=== PATIENT | male | born 1990 | race Caucasian/White ===

== ENCOUNTER 2017-01-05 12:56 | Emergency (ER) | payer MEDICAID ==
[~2017-01-05] VITALS: Ht 195.6 cm; Wt 68.0 kg
[~2017-01-05 12:56] MED LIST: CITA-77 PO; FURO40TA4; GABA-339 PO; HYDR-2652 PO; INSLISPI SC; INSUINJ37 SUBCUT; ISOS10TA2 PO; LEVO250T45 PO; MET25T PO; MIRT15TA63 PO; NIFEDICAL PO; NOR5T PO
[2017-01-05] MEDS ORDERED: SODIUM CHLORIDE 0.9% 1,000 ML IV ONE (15:21)
[2017-01-05] MEDS ORDERED: MORPHINE SULFATE 4 MG/ML SYRG IV ONE (15:30)
[2017-01-05] MEDS ORDERED: ONDANSETRON HCL 4 MG/2 ML VIAL IV ONE (15:30)
[2017-01-05 15:38] LABS: Basophils # (auto) 0 uL; Basophils % (auto) 0.5 % (0.0-2.0); DEFINITIVE VIEW TRANSMISSION; Eosinophils # (auto) 0.2 uL; Hematocrit 26.3 % (41.0-53.0); Hemoglobin 8.5 g/dL (13.5-17.5); Lymphocytes # (auto) 1.4 uL; Lymphocytes % (auto) 21.1 % (10.0-50.0); Mean Corpuscular Hemoglobin 28.1 pg (28.0-32.0); Mean Corpuscular Hgb Conc. 32.3 g/dL (32.0-36.0); Mean Corpuscular Volume 87.1 fL (80.0-100.0); Mean Platelet Volume 7.6 fL (7.4-10.4); Monocytes # (auto) 0.4 uL; Monocytes % (auto) 5.8 % (0.0-12.0); Neutrophils # (auto) 4.6 uL; Neutrophils % (auto) 69.6 % (37.0-80.0); Platelet Count (auto) 276 10^3/uL (140-450); Red Cell Distribution Width 14.4 % (11.6-16.0); White Blood Cell 6.7 10^3/uL (4.4-10.8)
[2017-01-05] MEDS ORDERED: InsuLIN REG 1unit/0.01ml Soln (100units/ml) IV ONE (15:45)
[2017-01-05 15:50] LABS: Albumin 2.6 g/dL (3.4-5.0); BUN/Creatinine Ratio 13.4; Calcium 8.3 mg/dL (8.5-10.1); Potassium 4.5 mmol/L (3.5-5.1)
[2017-01-05 15:53] LABS: Bilirubin, Total 0.9 mg/dL (0.2-1.0); Total Protein 6.4 g/dL (6.4-8.2)
[2017-01-05 16:40] VITALS: BP 146/101
== END 2017-01-05 19:07 | disposition home or self-care (01) ==
LOC: ER 12:56 → EDBD 12:56 → ER 19:07
DX: G89.29 Other chronic pain (principal); M54.5 Low back pain; E44.0 Moderate protein-calorie malnutrition; Z68.1 Body mass index [BMI] 19.9 or less, adult; M25.552 Pain in left hip; M25.551 Pain in right hip; E11.22 Type 2 diabetes mellitus with diabetic chronic kidney disease; I13.0 Hypertensive heart and chronic kidney disease with heart failure and stage 1 through stage 4 chronic kidney disease, or unspecified chronic kidney disease; N18.9 Chronic kidney disease, unspecified; I50.9 Heart failure, unspecified; F17.210 Nicotine dependence, cigarettes, uncomplicated; F12.10 Cannabis abuse, uncomplicated; E11.65 Type 2 diabetes mellitus with hyperglycemia; Z88.8 Allergy status to other drugs, medicaments and biological substances; Z79.4 Long term (current) use of insulin; Z79.899 Other long term (current) drug therapy; W18.39XA Other fall on same level, initial encounter; Y93.89 Activity, other specified; Y99.8 Other external cause status; Y92.89 Other specified places as the place of occurrence of the external cause
CPT/HCPCS: 36415; 73502; 80053; 82962; 85025; 96361; 96374; 96375; 99285; J1815; J2270; J2405; J7030

== ENCOUNTER 2017-08-15 03:22 | Inpatient (IN) | payer MEDICAID ==
[~2017-08-15] VITALS: Ht 193 cm; Wt 80.7 kg
[~2017-08-15 03:22] MED LIST changes: +HYDR-4663 PO; -NOR5T PO
[2017-08-15] MEDS ORDERED: cloNIDine HCL 0.1 MG TAB PO ONE (03:45)
[2017-08-15] MEDS ORDERED: PANTOPRAZOLE 40 MG/10 ML VIAL IV ONE ×2 (03:45→09:00)
[2017-08-15 04:10] LABS: Basophils # (auto) 0.1 uL; Eosinophils # (auto) 0.1 uL; Eosinophils % (auto) 1.7 % (0.0-7.0); Hematocrit 24.5 % (41.0-53.0); Lymphocytes # (auto) 0.9 uL; Lymphocytes % (auto) 9.9 % (10.0-50.0); Mean Corpuscular Hgb Conc. 32.7 g/dL (32.0-36.0); Mean Corpuscular Volume 94.8 fL (80.0-100.0); Mean Platelet Volume 7.6 fL (6.9-10.8); Monocytes # (auto) 0.4 uL; Neutrophils # (auto) 7.2 uL; Neutrophils % (auto) 82.4 % (37.0-80.0); Platelet Count (auto) 251 10^3/uL (140-450); White Blood Cell 8.8 10^3/uL (4.4-10.8)
[2017-08-15 04:26] LABS: INR 0.95 (0.9-1.15); Partial Thromboplastin Time 26.6 sec (22.64-33.71); Prothrombin Time 10.4 sec (9.37-12.3)
[2017-08-15] MEDS ORDERED: PROMETHAZINE HCL 25 MG/ML 1ML IV ONE (04:30)
[2017-08-15] MEDS ORDERED: MORPHINE SULF INJ 2 MG/ML SYRINGE 1ML IV ONE (04:30)
[2017-08-15 04:31] LABS: Albumin 3.2 g/dL (3.4-5.0); Amylase 75 U/L (25-115); Anion Gap 13 (5-15); Aspartate Aminotransferase 13 U/L (15-37); BUN/Creatinine Ratio 8.3; Blood Urea Nitrogen 58 mg/dL (7-18); Calcium 8.4 mg/dL (8.5-10.1); Carbon Dioxide 21 mmol/L (21-32); Chloride 107 mmol/L (98-107); GFR African American 12 mL/min; GFR Non-African American 10 mL/min; Glucose 167 mg/dL (74-106); Magnesium 3.3 mg/dL (1.6-2.6); Potassium 5.5 mmol/L (3.5-5.1); Sodium 141 mmol/L (136-145)
[2017-08-15 04:36] LABS: Alkaline Phosphatase 76 U/L (45-117); Bilirubin, Total 0.5 mg/dL (0.2-1.0); Total Protein 6.9 g/dL (6.4-8.2)
[2017-08-15 04:38] LABS: B-Type Natriuretic Peptide 1293.48 pg/mL (0-100)
[2017-08-15 04:39] LABS: Temperature: 22.2 C (20.0-25.0)
[2017-08-15] MEDS ORDERED: SODIUM CHLORIDE 0.9% 1,000 ML IV ONE (07:34)
[2017-08-15] MEDS ORDERED: FUROSEMIDE 40 MG/4 ML VIAL IV ONE ×2 (07:45→10:30)
[2017-08-15] MEDS ORDERED: NITROGLYCERIN 0.4 MG SL TAB SL PRN (09:00)
[2017-08-15] MEDS ORDERED: HYDROcodone-ACET 5/325MG TAB PO PRN (09:00)
[2017-08-15] MEDS ORDERED: SODIUM POLYSTYRENE SULF 15GM/60ML SUSP PO ONE (09:00)
[2017-08-15] MEDS ORDERED: LACTULOSE 20Gm/30ML SOLN PO PRN (09:00)
[2017-08-15] MEDS ORDERED: ACETAMINOPHEN 500 MG TAB PO PRN (09:00)
[2017-08-15] MEDS ORDERED: LORazepam 0.5 MG TAB PO PRN (09:00)
[2017-08-15] MEDS ORDERED: MORPHINE SULF INJ 2 MG/ML SYRINGE 1ML IV PRN (09:00)
[2017-08-15] MEDS ORDERED: TEMAZEPAM 15 MG CAP PO PRN (09:00)
[2017-08-15] MEDS: MORPHINE SULF INJ 2 MG/ML SYRINGE 1ML IV PRN ×2 (09:28→14:38)
[2017-08-15] MEDS: PROMETHAZINE HCL 25 MG/ML 1ML IV PRN ×2 (09:28→14:39)
[2017-08-15] MEDS ORDERED: PATIENTS OWN MEDICATION (Gabapentin 600 MG) PO SCH ×2 (10:00)
[2017-08-15] MEDS ORDERED: FUROSEMIDE 40 MG/4 ML VIAL IV SCH (10:00)
[2017-08-15] MEDS ORDERED: NIFEDICAL PO SCH (10:00)
[2017-08-15] MEDS ORDERED: METOPROLOL TARTRATE 25 MG TAB PO SCH (10:00)
[2017-08-15] MEDS ORDERED: LEVOFLOXACIN 250MG 50 ML IV SCH (10:00)
[2017-08-15] MEDS ORDERED: PANTOPRAZOLE 40 MG/10 ML VIAL IV SCH ×2 (10:00→22:00)
[2017-08-15] MEDS ORDERED: NIFEdipine ER 30 MG TAB PO SCH (10:00)
[2017-08-15] MEDS ORDERED: GABAPENTIN 300 MG CAP PO SCH (10:00)
[2017-08-15] MEDS ORDERED: CITALOPRAM HYDROBR 20 MG TAB PO SCH (10:00)
[2017-08-15 10:21] LABS: Urine Bilirubin Negative (Negative); Urine Blood 3+ /uL (Negative); Urine Color Red (Yellow); Urine Glucose 2+ mg/dL (Normal); Urine Ketone Negative (Negative); Urine Nitrite Negative (Negative); Urine RBC 1974 /hpf (0 - 3); Urine Urobilinogen Normal (Negative)
[2017-08-15 12:01] LABS: Hematocrit 22.2 % (41.0-53.0)
[2017-08-15] MEDS ORDERED: hydrALAZINE HCL 25 MG TAB PO SCH (14:00)
[2017-08-15] MEDS ORDERED: ISOSORBIDE DINITRATE 10 MG TAB PO SCH (14:00)
[2017-08-15] MEDS ORDERED: PATIENTS OWN MEDICATION (Hydralazine Hcl 50 MG) PO SCH ×2 (14:00)
[2017-08-15] MEDS ORDERED: metroNIDAZOLE 500MG/100ML 100 ML IV SCH (14:00)
[2017-08-15] MEDS ORDERED: NIF10C PO (14:10)
[2017-08-15] MEDS ORDERED: ONDA8TAB6 PO (14:10)
[2017-08-15] MEDS ORDERED: GABA-339 PO (14:10)
[2017-08-15] MEDS ORDERED: FER325T PO (14:10)
[2017-08-15 17:17] VITALS: BP 144/72
[2017-08-15] MEDS ORDERED: INSULIN GLARGINE 10 UNIT SUBCUT SCH ×2 (18:00)
[2017-08-15 18:19] VITALS: BP 143/91
[2017-08-15] MEDS ORDERED: MIRTAZAPINE 15 MG PO SCH (22:00)
[2017-08-15] MEDS ORDERED: ATORVASTATIN 20 MG TAB PO SCH (22:00)
[2017-08-15] MEDS ORDERED: MIRTAZAPINE 30 MG TAB PO SCH (22:00)
== END 2017-08-15 19:38 | disposition left against medical advice (07) | DRG 253 ==
LOC: EDBD 03:22 → ER 03:24 → TELE 03:25
PROVIDERS: ADMIT Internal Medicine; ATTEND Internal Medicine
DX: K92.2 Gastrointestinal hemorrhage, unspecified (principal); N17.9 Acute kidney failure, unspecified; I31.3 Pericardial effusion (noninflammatory); I13.0 Hypertensive heart and chronic kidney disease with heart failure and stage 1 through stage 4 chronic kidney disease, or unspecified chronic kidney disease; I50.9 Heart failure, unspecified; E44.1 Mild protein-calorie malnutrition; E11.21 Type 2 diabetes mellitus with diabetic nephropathy; E83.41 Hypermagnesemia; Z53.21 Procedure and treatment not carried out due to patient leaving prior to being seen by health care provider; E11.65 Type 2 diabetes mellitus with hyperglycemia; N18.9 Chronic kidney disease, unspecified; K92.0 Hematemesis; E11.621 Type 2 diabetes mellitus with foot ulcer; K59.00 Constipation, unspecified; E11.319 Type 2 diabetes mellitus with unspecified diabetic retinopathy without macular edema; D63.8 Anemia in other chronic diseases classified elsewhere; E11.40 Type 2 diabetes mellitus with diabetic neuropathy, unspecified; E11.22 Type 2 diabetes mellitus with diabetic chronic kidney disease; E87.5 Hyperkalemia; H54.0 Blindness, both eyes; F17.210 Nicotine dependence, cigarettes, uncomplicated; G89.29 Other chronic pain; E87.6 Hypokalemia; I16.0 Hypertensive urgency; L97.509 Non-pressure chronic ulcer of other part of unspecified foot with unspecified severity; M54.9 Dorsalgia, unspecified; Z83.3 Family history of diabetes mellitus; Z82.49 Family history of ischemic heart disease and other diseases of the circulatory system
CPT/HCPCS: 36415; 71010; 74176; 76775; 80053; 80307; 81001; 82150; 82378; 82550; 83690; 83735; 83880; 84443; 84484; 85014; 85018; 85025; 85045; 85610; 85652; 85730; 86141; 86850; 86900; 86901; 86920; 93005; 93306; 94761; 96361; 96365; 96375; C9113

== ENCOUNTER 2017-11-22 02:06 | Emergency (ER) | payer MEDICAID ==
[~2017-11-22] VITALS: Ht 195.6 cm; Wt 80.7 kg
[~2017-11-22 02:06] MED LIST changes: +FER325T PO; -HYDR-2652 PO; -HYDR-4663 PO; +HYDR-4683 PO; +HYDR50TA15 PO; -ISOS10TA2 PO; -LEVO250T45 PO; -MIRT15TA63 PO; +NIF10C PO; -NIFEDICAL PO; +ONDA8TAB6 PO
[2017-11-22 02:25] VITALS: BP 121/71
== END 2017-11-22 08:06 | disposition left against medical advice (07) ==
LOC: ER 02:08
DX: M54.5 Low back pain (principal); M79.1 Myalgia; I13.0 Hypertensive heart and chronic kidney disease with heart failure and stage 1 through stage 4 chronic kidney disease, or unspecified chronic kidney disease; E11.22 Type 2 diabetes mellitus with diabetic chronic kidney disease; E11.40 Type 2 diabetes mellitus with diabetic neuropathy, unspecified; N18.9 Chronic kidney disease, unspecified; I50.9 Heart failure, unspecified; E11.9 Type 2 diabetes mellitus without complications; Z79.4 Long term (current) use of insulin
CPT/HCPCS: 72100

== ENCOUNTER 2018-01-05 00:22 | Emergency (ER) | payer MEDICAID ==
[~2018-01-05] VITALS: Ht 190.5 cm; Wt 81.6 kg
[2018-01-05] MEDS ORDERED: HYDROcodone-ACET 10/325MG TAB PO ONE ×2 (02:45→06:30)
[2018-01-05] MEDS ORDERED: ONDANSETRON HCL 4 MG/2 ML VIAL ONE (02:52)
[2018-01-05] MEDS ORDERED: cloNIDine HCL 0.1 MG TAB ONE (02:59)
[2018-01-05] MEDS ORDERED: cloNIDine HCL 0.1 MG TAB PO ONE (03:45)
[2018-01-05] MEDS ORDERED: ONDANSETRON HCL 4 MG/2 ML VIAL IM ONE (03:45)
[2018-01-05 06:30] VITALS: BP 160/97
== END 2018-01-05 07:19 | disposition home or self-care (01) ==
LOC: EDBD 00:22 → ER 00:22
DX: S33.5XXA Sprain of ligaments of lumbar spine, initial encounter (principal); S70.01XA Contusion of right hip, initial encounter; G89.29 Other chronic pain; M54.5 Low back pain; I13.0 Hypertensive heart and chronic kidney disease with heart failure and stage 1 through stage 4 chronic kidney disease, or unspecified chronic kidney disease; E11.22 Type 2 diabetes mellitus with diabetic chronic kidney disease; N18.9 Chronic kidney disease, unspecified; F17.210 Nicotine dependence, cigarettes, uncomplicated; F12.10 Cannabis abuse, uncomplicated; I50.9 Heart failure, unspecified; Z88.8 Allergy status to other drugs, medicaments and biological substances; Z79.4 Long term (current) use of insulin; Z79.899 Other long term (current) drug therapy; W19.XXXA Unspecified fall, initial encounter; Y93.89 Activity, other specified; Y99.8 Other external cause status; Y92.89 Other specified places as the place of occurrence of the external cause
CPT/HCPCS: 72128; 72131; 82962; 96372; 99284; J2405

== ENCOUNTER 2018-06-28 10:32 | Emergency (ER) | payer MEDICAID ==
[~2018-06-28] VITALS: Ht 195.6 cm; Wt 70.3 kg
[~2018-06-28 10:32] MED LIST changes: +ONDA-143 PO; -ONDA8TAB6 PO
[2018-06-28] MEDS ORDERED: HYDROcodone-ACET 10/325MG TAB PO ONE (10:45)
[2018-06-28 10:57] VITALS: BP 116/72
== END 2018-06-28 12:19 | disposition home or self-care (01) ==
LOC: EDUNIT# 10:32 → ER 10:32 → EDBD 10:32 → ER 12:19
DX: S93.492A Sprain of other ligament of left ankle, initial encounter (principal); I13.2 Hypertensive heart and chronic kidney disease with heart failure and with stage 5 chronic kidney disease, or end stage renal disease; I50.9 Heart failure, unspecified; N18.6 End stage renal disease; E11.22 Type 2 diabetes mellitus with diabetic chronic kidney disease; F17.210 Nicotine dependence, cigarettes, uncomplicated; Z88.8 Allergy status to other drugs, medicaments and biological substances; Z79.4 Long term (current) use of insulin; Z79.899 Other long term (current) drug therapy; W18.39XA Other fall on same level, initial encounter; Y93.01 Activity, walking, marching and hiking; Y99.8 Other external cause status; Y92.090 Kitchen in other non-institutional residence as the place of occurrence of the external cause
CPT/HCPCS: 29515; 73600